=== PATIENT | female | born 1980 | race Caucasian/White ===

== ENCOUNTER 2023-03-30 10:22 | Emergency (ER) | payer OTHER, BC ==
[2023-03-30 10:42] VITALS: BP 137/89
--- NOTE | 2023-03-30 10:45 | ED Physician Documentation ---
History of Present Illness - Stated complaint Stated Complaint: EXPOSURE - Chief complaint Chief Complaint: General - History obtained from History obtained from: Patient - History of Present Illness Timing: How many days ago (2) Quality: Here for post exposure prophylaxis to pertussis that occured at work here. Directed to ER by admin. Review of Systems Constitutional: denies: Fever, Chills Respiratory: denies: Cough PD PAST MEDICAL HISTORY - Past Surgical History Past Surgical History: No - Present Medications Home Medications: Ambulatory Orders Medication Instructions Recorded Confirmed Azithromycin [Zithromax] 0 mg PO DAILY #6 tablet 03/30/23 Fexofenadine [Daija] 180 mg PO DAILY 03/30/23 03/30/23 Fluticasone [Flonase] 2 spray CHANTELL DAILY 03/30/23 03/30/23 - Allergies Allergies/Adverse Reactions: Allergies Allergy/AdvReac Type Severity Reaction Status Date / Time iodine Allergy Unknown Verified 03/30/23 10:37 shellfish derived Allergy Unknown Verified 03/30/23 10:37 - Social History Does the pt smoke?: No Smoking Status: Never smoker Does the pt have substance abuse?: No - POLST Patient has POLST: No PD ED PE NORMAL - Vitals Vital signs reviewed: Yes - General General: Alert and oriented X 3, No acute distress, Well developed/nourished Results - Vitals Vitals: Vital Signs - 24 hr 03/30/23 10:38 Temperature 36.8 C Heart Rate 83 Respiratory 16 Rate Blood Pressure 137/89 H O2 Saturation 99 Oxygen O2 Source Room air PD Medical Decision Making - ED course Complexity details: considered differential (Here for post exposure prophylaxis to pertussis that occured at work here. Directed to ER by admin.), d/w patient Departure - Departure Disposition: 01 Home, Self Care Clinical Impression: Pertussis exposure Condition: Stable Record reviewed to determine appropriate education?: Yes Prescriptions: Azithromycin [Zithromax] 0 mg PO DAILY #6 tablet Comments: Take Zithromax as directed per packet. This should reduce your chances significantly of developing infection. Take the medication with food. I sent the prescription to [facility] pharmacy. Discharge Date/Time: 03/30/23 11:11
== END 2023-03-30 11:11 | disposition home or self-care (01) ==
LOC: ED 10:22
DX: Z20.89 Contact with and (suspected) exposure to other communicable diseases (principal)
CPT/HCPCS: 99281; 99283